=== PATIENT | male | born 1945 | race Caucasian/White ===

== ENCOUNTER 2023-06-22 09:42 | Outpatient (CLI) | payer MEDICARE, SELFPAY ==
[2023-06-22 10:44] LABS: Basophils Absolute Auto 0.1 K/mm3 (0.0-0.1); Eosinophils Absolute Auto 0.4 K/mm3 (0-0.3); Eosinophils Percent Auto 7.5 % (0-4.4); Hemoglobin 14.3 g/dL (14.0-18.0); Immature Granulocyte Absolute 0.03 K/mm3 (0.00-0.031); Immature Granulocyte Percent A 0.5 % (0-0.5); Lymphocytes Absolute Auto 1.35 K/mm3 (0.9-3.2); Lymphocytes Percent Auto 23.5 % (18.3-44.2); Mean Corpuscular HGB Conc 32.5 g/dl (32-36); Mean Corpuscular Hemoglobin 29.7 pg (26-34); Mean Corpuscular Volume 91.3 fl (80-100); Mean Platelet Volume 9.6 fl (7.4-10.4); Monocytes Absolute Auto 0.4 K/mm3 (0.1-0.6); Monocytes Percent Auto 7.1 % (2.6-8.5); Neutrophils Absolute Auto 3.5 K/mm3 (1.3-6.7); Neutrophils Percent Auto 60.4 % (45.5-73.1); Platelet Count Result 225 k/mm3 (150-375); Red Blood Count 4.82 M/mm3 (4.6-6.20); Red Cell Distribution Width 13.9 % (11.5-14.5); White Blood Count 5.8 K/mm3 (4.5-10.0)
[2023-06-22 11:19] LABS: Urine Cotinine NEGATIVE
[2023-06-22 13:06] LABS: Hemoglobin A1C 6.4 % (<5.7)
[2023-06-22 13:46] LABS: Albumin Level 4.4 g/dL (3.5-5.1); Anion Gap 7 mmol/L (4-12); Blood Urea Nitrogen 20 mg/dL (9-20); Carbon Dioxide 25 mmol/L (22-30); Chloride 106 mmol/L (98-107); Estimated Glomerular Filt Rate > 60; Glucose 124 mg/dL (65-110); Potassium 4.8 mmol/L (3.4-5.0); Sodium 138 mmol/L (137-145)
== END 2023-06-22 09:43 | disposition home or self-care (01) ==
PROVIDERS: Visit Provider Orthopaedic Surgery
DX: M17.12 Unilateral primary osteoarthritis, left knee (principal); Z01.818 Encounter for other preprocedural examination
CPT/HCPCS: 80048; 80307; 82040; 83036; 85025; 86850; 86900; 86901; 87081; 87181

== ENCOUNTER 2023-07-05 01:24 | Day surgery (SDC) | payer MEDICARE, SELFPAY ==
--- NOTE | 2023-06-22 09:38 | PC.NURSE ---
PRE-OP INSTRUCTIONS, PLEASE READ CAREFULLY Report to the Outpatient Waiting Room, entrance under the green pavilion located off [facility], at time _0600_ on date _07/05/23_. Planned Procedure Time: _0730_. PACK A SMALL OVERNIGHT BAG AND LEAVE IN THE CAR ALONG WITH YOUR WALKER Time changes happen often and if your time is changed the preop area will call you the afternoon before. - You and your visitor will be asked to self-screen and do not enter if you have any COVID symptoms. - A mask is optional within the hospital at this time. -VISITING HOURS 8AM-8PM Patients may have clear liquids (water, carbonated beverages, clear teas, apple juice) until 3 hours prior to surgery (0430 AM) with a maximum of 20 ounces. - No food from midnight until time of surgery Take the following medications with a SIP of water the morning of surgery: _TYLENOL IF NEEDED_ DO NOT STOP ANY OF YOUR OTHER PRESCRIPTION MEDICATIONS PRIOR TO SURGERY ?EXCEPT THE FOLLOWING Medications to discontinue per DR. BERNSTEIN - _ASPIRIN INSTRUCTED BY DR. BERNSTEIN, NAPROXEN 7 DAYS PRIOR TO SURGERY, Date to take last dose 06/27/23_ Medications to discontinue per ANESTHESIA - _MULTIVITAMIN 3 DAYS PRIOR TO SURGERY, Date to take last dose 07/01/23_ Please no make-up, nail vincentian, hairspray, perfume, deodorant, or body powder the day of surgery. No jewelry (including any body piercings) or valuables the day of surgery, leave them at home. Please take a shower or bath the night before, or the morning of, surgery with an antibacterial soap. Wear comfortable, loose fitting clothing. - Jewelry must be removed prior to entering the operating room. Rings and piercings that are not removed may be cut off. - The hospital will not accept responsibility for valuables. - Please leave all valuables, including medications, at home the day of surgery. If you are going home after surgery, a licensed sales warehouse driver must drive you home. - NO public transportation without another adult if you receive anesthesia. - We recommend that an adult stay with you for 24 hours following discharge. - We also recommend that you do not drive, make important decision, drink alcoholic beverages, or take any drugs that were not prescribed by your health care provider for at least 24 hours after your discharge time. Follow any additional instructions given to you from your surgeon. If you or anyone in your household have experienced Covid symptoms in the past week, please notify your surgeon or the nurse liaison at the phone number below for possible testing. Instructions given to _PATIENT_and asked if any additional questions and then verbalized understanding. Patient advised to call surgeon office or pre surgery nurse liaison [phone] if any additional questions.
[2023-06-22 09:51] VITALS: BP 144/58; PULSE 66; RESP 20; TEMP 36.9; O2SAT 99; BMI 33.5
--- NOTE | 2023-07-04 16:12 | PM.IMHP ---
H&P: HPI History of Present Illness Date/Time: 07/04/23 16:12 Chief Complaint: painful medial compartment osteoarthritis left knee Narrative: patient is a 78-year-old gentleman has had a 1 year history of progressively worsening medial compartment osteoarthritis in his left knee. He originally presented with a degenerative tear of the medial meniscus and extensive subchondral bone marrow edema with moderate medial compartment joint space narrowing. He has had cortisone injections he has taken naproxen 500 mg twice daily and had physical therapy and has not had any relief and his osteoarthritis radiographically has continued to progress and is now moderately severe medial compartment joint space narrowing. He now presents for total knee arthroplasty. His primary care physician is Dr. Mullins. He was evaluated by Dr. Anderson the client service coordinator in [place] and has been cleared to proceed without significant elevation of cardiac risk. He has taken a baby aspirin daily for many years because of his so obesity and diabetes and we will continue with this. His hemoglobin A1c runs approximately 7. PMFSH Past Medical History Medical History (Updated 07/04/23 @ 16:17 by Yordy Dominique MD) High cholesterol Hypertension Osteoarthritis of right knee Type 2 diabetes mellitus Surgical History Surgical History (Updated 06/18/23 @ 14:30 by Maria Dolores Méndez CMA) History of appendectomy History of rotator cuff surgery right Social History Social History (Updated 06/18/23 @ 14:31 by Maria Dolores Méndez CMA) Smoking status: Never smoker Second hand tobacco smoke exposure: No Additional smoking assessment comments: PT DENIES ALL FORMS OF TOBACCO USE Alcohol intake: current Alcohol use details: 1-2/MONTH Substance use: never Substance use type: does not use Do You Feel Safe in your Home?: Yes Lack of Transportation: No Lack of Food: Never True Current Housing: I Have Housing Concerned About Future Housing: No Difficulty Paying Gas/Electric Bills: No Difficulty Paying for Meds: No Currently Unemployed: No Education: High School Diploma/GED Difficulty w/ Childcare or Family Care: No Living arrangements: with family Occupation/Education: retired Spiritual care concerns: No Meds Home Medications and Allergies Home Medications Medication Instructions Recorded Confirmed Type acetaminophen 500 mg tablet 500 mg PO Q6H PRN Pain 06/18/23 06/22/23 History (Tylenol Extra Strength) aspirin 81 mg tablet,delayed 81 mg PO DAILY 06/18/23 06/22/23 History release (Koki Low Dose Aspirin) atorvastatin 20 mg tablet 20 mg PO DAILY 06/18/23 06/22/23 History fexofenadine 180 mg tablet 180 mg PO DAILY 06/18/23 06/22/23 History (Allergy Relief (fexofenadine)) lisinopril 10 mg tablet 10 mg PO DAILY 06/18/23 06/22/23 History metformin 500 mg tablet 500 mg PO BID 06/18/23 06/22/23 History multivitamin 1 tablet PO DAILY 06/18/23 06/22/23 History naproxen sodium 220 mg capsule 220 mg PO BID PRN Pain 06/18/23 06/22/23 History pioglitazone 15 mg tablet 15 mg PO DAILY 06/18/23 06/22/23 History Allergies Allergy/AdvReac Type Severity Reaction Status Date / Time No Known Allergies Allergy Verified 06/22/23 09:58 Exam Extrem: Other: On examination today the patient is a pleasant gentleman in no acute distress. Alert and oriented. 5 ft 8 in in height 226 lb BMI of 33.8. Range of motion left knee 5-125 degrees mild effusion. He has medial pain with full flexion. Moderate medial joint line tenderness moderate pain with patellofemoral grind normal stability. Hip range of motion was full without discomfort negative Stinchfield maneuver. He has trace pretibial edema bilaterally no pedal edema. 2+ dorsalis pedis and posterior tibial artery pulses were palpable. Skin looks normal he had normal size lower extremity sensation and 5/5 quadriceps strength. H&P: Results Imaging Left knee x-rays: My impression: x-rays of left knee show narrowing of medial compartment joint space to 1.7 mm. Assessment and Plan Assessment and plan (1) Osteoarthritis of left knee: Qualifiers: Osteoarthritis type: primary Qualified Code(s): M17.12 - Unilateral primary osteoarthritis, left knee Code(s): M17.12 - Unilateral primary osteoarthritis, left knee Status: Acute Assessment and Plan: Patient has progressively worsening medial compartment osteoarthritis in left knee has had no relief with non operative treatment over the past year and his symptoms are steadily worsening and he would like to proceed with total knee replacement. Risks of surgery were reviewed with him in detail. He understands and wishes to proceed. He will stop his naproxen 7 days before surgery but continue the baby aspirin.
[2023-07-05] VITALS (14 sets, daily range): BP systolic 120–169; BP diastolic 52–83; PULSE 68–100; RESP 12–18; TEMP 36–37.1; O2SAT 92–99
--- NOTE | ~2023-07-05 | XR_ITS ---
Left Knee Technique: Portable AP and crosstable lateral views Clinical History: Status post TKR Findings: Patient is status post total knee replacement. Orthopedic hardware alignment appears anatom ic. No hardware complication is evident. Subcutaneous emphysema and swelling is likely postoperative in nature. No acute osseous fracture is seen. Impression: Status post total knee replacement, without evidence of hardware complication. Reviewed, dictated and finalized at location . Impression: Status post total knee replacement, without evidence of hardware complication.
[2023-07-05] MEDS: ACETAMINOPHEN 500 MG TABLET 1000 MG PO ×2 (06:30→17:42)
[2023-07-05] MEDS: TRANEXAMIC ACID 1,000MG/ISO100 1,000 MG/100 ML BAG 200 MG IVPB (06:35)
[2023-07-05] MEDS: LACTATED RINGERS 1,000 ML 30 ML IV CONT ×2 (06:35→11:04)
[2023-07-05] MEDS: VANCOMYCIN 1,500 MG/NS 500 ML BAG 250 MG IVPB (06:35)
[2023-07-05 06:52] LABS: Glucose Point of Care 131 mg/dl (65-105)
--- NOTE | 2023-07-05 07:02 | P.PNAN_ITS ---
Anes - Initial Pre Proc Eval Procedure: Operation Date: 07/05/23 07:30 Proposed Procedures p Left Total Knee Arthroplasty - Yordy Dominique MD Date/Time: 07/05/23 07:02 Surgeon: Yordy Dominique MD Pre Op Diagnosis: oa Left knee Patient Data Age: 78 Gender: M Height: 1.75 m Weight: 102.9 kg Last Vital Signs Temp 98.5 F 06/22/23 09:51 Pulse 66 06/22/23 09:51 Resp 20 06/22/23 09:51 BP 144/58 H 06/22/23 09:51 Pulse Ox 99 06/22/23 09:51 O2 Del Method Room Air 06/22/23 09:51 Allergies Allergy/AdvReac Type Severity Reaction Status Date / Time No Known Allergies Allergy Verified 07/05/23 06:42 Home Medications Medication Instructions Recorded Confirmed Type acetaminophen 500 mg tablet 500 mg PO Q6H PRN Pain 06/18/23 07/05/23 History (Tylenol Extra Strength) aspirin 81 mg tablet,delayed 81 mg PO DAILY 06/18/23 07/05/23 History release (Koki Low Dose Aspirin) atorvastatin 20 mg tablet 20 mg PO DAILY 06/18/23 07/05/23 History fexofenadine 180 mg tablet 180 mg PO DAILY 06/18/23 07/05/23 History (Allergy Relief (fexofenadine)) lisinopril 10 mg tablet 10 mg PO DAILY 06/18/23 07/05/23 History metformin 500 mg tablet 500 mg PO BID 06/18/23 07/05/23 History multivitamin 1 tablet PO DAILY 06/18/23 07/05/23 History naproxen sodium 220 mg capsule 220 mg PO BID PRN Pain 06/18/23 07/05/23 History pioglitazone 15 mg tablet 15 mg PO DAILY 06/18/23 07/05/23 History Laboratory Tests 07/05/23 06:50 POC Capillary Glucose 131 H mg/dl (65-105) Patient hx anesthesia problems: none Family hx anesthesia problems: none Results Review: All pre-operative results and documents have been reviewed as part of the pre-operative evaluation. [facility] Past Medical History Medical History (Updated 07/04/23 @ 16:17 by Yordy Dominique MD) High cholesterol Hypertension Osteoarthritis of right knee Type 2 diabetes mellitus Surgical History Surgical History (Updated 06/18/23 @ 14:30 by Maria Dolores Méndez CMA) History of appendectomy History of rotator cuff surgery right Social History Social History (Updated 06/18/23 @ 14:31 by Maria Dolores Méndez CMA) Smoking status: Never smoker Second hand tobacco smoke exposure: No Additional smoking assessment comments: PT DENIES ALL FORMS OF TOBACCO USE Alcohol intake: current Alcohol use details: 1-2/MONTH Substance use: never Substance use type: does not use Do You Feel Safe in your Home?: Yes Lack of Transportation: No Lack of Food: Never True Current Housing: I Have Housing Concerned About Future Housing: No Difficulty Paying Gas/Electric Bills: No Difficulty Paying for Meds: No Currently Unemployed: No Education: High School Diploma/GED Difficulty w/ Childcare or Family Care: No Living arrangements: with family Occupation/Education: retired Spiritual care concerns: No Anes - Eval Final PreProcedure Day of Procedure 07/05/23 07:02 Patient weight: normal Heart: regular rate and rhythm Lungs: clear to auscultation Airway: Mallampati scale class III Neurological: alert and oriented Last oral intake: >/= 8 hours ASA classification: III Emergent: no Anesthetic plan: proceed Anesthesia type and monitoring: general ETT (have glidescope in the room) and standard monitoring Results Review: All pre-operative results and documents have been reviewed as part of the pre- operative evaluation. Informed Consent: The patient's anesthetic plan and its attendant risks and benefits were discussed with the patient/family/POA. Questions were solicited and answers provided to the satisfaction of the patient/family/POA.
--- NOTE | 2023-07-05 07:09 | P.OP_ITS ---
Procedure Note - Detailed Date of Procedure 07/05/23 Pre-op Diagnosis oa Left knee Post-op Diagnosis Same Procedure Performed Left total knee arthroplasty Surgeon Yordy Dominique MD Smoke Jumper Supervisor Chantale Vargas Anesthesia General Description of Procedure Patient was brought to the operating room and general anesthesia was administered. He received 2 g of Ancef weight based vancomycin 1 g of tranexamic acid preoperatively. Left knee was prepped draped usual fashion. He had full extension under anesthesia. Limb was exsanguinated tourniquet elevated to 300 mmHg. A 7 in longitudinal incision was made and a standard parapatellar arthrotomy utilized. Infrapatellar fat pad was partially excised. Quadriceps synovectomy carried out. The patella had essentially normal articular cartilage. I felt it was most suitable for non resurfacing. A guide elighton was inserted on femoral canal after aspiration of canal contents using the 5 degree valgus cutting bushing 9 mm of bone removed the distal femur. Next the tibial plateau was cut removing about 4 mm of bone from the low point of the medial tibial plateau which removed about 6 laterally. Meniscal remnants were excised and the PCL recessed. Flexion gap was a a tight 8 medially and a tight and laterally at 90? indicating the need for removal little more tibial plateau and we confirmed we had proper alignment of the cut and we removed an additional 2 mm of bone from the tibial plateau. At this point flexion gap at 90? 9 medially 11 lateral bone quality was excellent. The femoral sizing guide was applied set at 3? of external rotation which matched Whitesides line exactly. Posterior referencing pinholes were placed. We applied the size 70 cutting block in the anterior cut was proud and we went to the 67.5 cutting block which gave appropriate anterior cut essentially flush with the anterior cortex posterior and chamfer cuts were made and the 67 0.5 vanguard trial fit line to line with ample we had ample play with the 10 CR insert a 90? of flexion with 2 mm of opening both medially and laterally. The tibia was sized to a size 75 which fit line to line anteromedial to posterolateral. This was punched and we trialed. With the 10 insert and about 2 mm of opening medially and laterally came out to full extension but no play mediolaterally. The 11 insert at 90? had a mm opening mediolateral and had a few mm of anterior posterior drawer and with the arthrotomy towel clipped still a few mm of anterior drawer and I thought felt the 11 was most appropriate in flexion. We lacked couple degrees of extension though. Additional mm and half of bone was removed the distal femur and chamfer cuts revisited and on repeat trialing with the 11 the knee came out to full extension negative bounce with a mm of play to varus and valgus stress full extension and gravity flexion 135. The was excellent patellar tracking even with the tourniquet up. Lug holes were drilled for the femur and step drill was used to make multiple holes in the tibial plateau and distal femur as his bone was very hard throughout. Bony surfaces were thoroughly irrigated and dried. He is 2 batches of methylmethacrylate 1 the gentamicin powder cement was medial applied to 75 vanguard tibial tray and the 67.5 CR left femoral component. Cement applied the tibial plateau pressurized tibial component fully seated cement applied the femur the femoral component fully seated the brought into extension with a 12 mm 5 1 insert for cement pressurization the tourniquet was released at 102 minutes. After cement hardening excess cement was sought for removed and hemostasis was achieved. EBL was estimated at 1:50 a.m.. We trialed and the 11 insert was appropriate. The real 11 insert was placed locked with a locking clip range of motion stability patellar tracking reconfirmed. Periarticular soft tissues were injected with local anesthetic cocktail. The arthrotomy was closed with 2. Vicryl is a 1. Unidirectional barbed Stratafix sutures. Skin was closed with 2-0 subcutaneous Vicryl 3-0 subcuticular Monocryl glue. Two additional g of Ancef and 1 g of TXA were given at time of wound closure. There were no complications he was transferred postop recovery room in stable condition. [facility] Billing Surgery - Charge Forward: Surgery Billing
--- NOTE | 2023-07-05 07:09 | WPDHPUPDATE1 ---
History and Physical Update Update Date/Time: 07/05/23 07:09 History and Physical has been reviewed, including an updated exam of the patient. There are NO changes in the patient's condition. Risks, benefits, and alternatives have been discussed and questions answered. Patient agrees to proceed with procedure.
[2023-07-05] MEDS: ceFAZolin 2 GM/D5W 50 ML 2 GM/50 ML BAG IVPB (07:26)
[2023-07-05] MEDS: ceFAZolin SODIUM 1 GM VIAL 3 GM (08:28)
[2023-07-05] MEDS: SODIUM CHLORIDE 0.9% IV 37.7 ML, MORPHINE SULFATE INJ (*CRX) 2 MG, ROPivacaine HCL 1% 2... INFILTRATE (08:29)
[2023-07-05] MEDS: ceFAZolin SODIUM 1 GM VIAL 2 GM IV PUSH (09:45)
[2023-07-05] MEDS: KETOROLAC 15 MG/ML VIAL (*BKC) IV PUSH (09:47)
[2023-07-05] MEDS: TRANEXAMIC ACID 1,000 MG/10 ML AMPUL 1000 MG IV PUSH (09:47)
[2023-07-05 11:23] LABS: Glucose Point of Care 197 mg/dl (65-105)
[2023-07-05] MEDS: ONDANSETRON INJ 4 MG/2 ML VIAL IV PUSH ×2 (12:06→14:45)
[2023-07-05] MEDS: SODIUM CHLORIDE 0.9% IV 1,000 ML 125 ML IV CONT (14:45)
[2023-07-05] MEDS: ceFAZolin 1 GM/NS 50 ML 1 GM/50 ML BAG IVPB ×2 (14:45→22:00)
--- NOTE | 2023-07-05 15:22 | P.CONS_ITS ---
Assessment and Plan Assessment and plan (1) Osteoarthritis of left knee: Qualifiers: Osteoarthritis type: primary Qualified Code(s): M17.12 - Unilateral primary osteoarthritis, left knee Code(s): M17.12 - Unilateral primary osteoarthritis, left knee Status: Acute Assessment and Plan: Postoperative day 0 status post right total knee arthroplasty. Wound care, pain control, and DVT prophylaxis deferred to Dr. Dominique. Check baseline labs in a.m. (2) Hypertension: Code(s): I10 - Essential (primary) hypertension Status: Acute Assessment and Plan: Blood pressures were reviewed and have been persistently in the 150s to 160s systolic since surgery. These are likely elevated due to pain and should improve with better pain control. Continue lisinopril 10 mg daily and continue to monitor closely. (3) Type 2 diabetes mellitus: Code(s): E11.9 - Type 2 diabetes mellitus without complications Status: Acute Assessment and Plan: Resume oral diabetic medications in the morning. Initiate sliding scale insulin, Accu-Cheks, and hypoglycemic protocol. (4) Dyslipidemia: Code(s): E78.5 - Hyperlipidemia, unspecified Status: Acute Assessment and Plan: Resume fexofenadine and atorvastatin. Check LFTs in a.m. Plan Thank you for allowing us to participate in this patient's care. Please do not hesitate to contact us with any questions. [facility] Data of Consult Date/Time: 07/05/23 15:00 Requesting Physician: Yordy Dominique MD Consult Narrative Reason for consult: Medical management. Narrative: This is a 78-year-old male with osteoarthritis, hypertension, dyslipidemia, and type 2 diabetes mellitus whom the hospitalist service has been consulted for help managing his medical conditions postoperatively. He presented today for elective total knee arthroplasty due to ongoing pain despite conservative outpatient treatment. Surgery was performed under general anesthesia with no immediate complications documented. He had a bit of nausea and 1 episode of emesis not long after surgery but that has since resolved and he ate dinner without issue. He has minimal if any pain and has not required narcotics. He has been up with PT and is ambulating the halls. He denies fever, chills, sweats, chest pain, and shortness of breath. He also denies paresthesias, skin color, and temperature changes distal to the surgical site. On discharge he will be going home to his who is a retired nurse. Review of Systems Review of Systems: Twelve systems were reviewed. He believes is hypertension hyperlipidemia are well controlled on home medication. Diabetes is well controlled with a recent hemoglobin A1c of 6.4%. No history of venous thromboembolism. Except as documented, all other systems were reviewed and are negative. [facility] Past Medical History Medical History (Updated 07/05/23 @ 15:26 by Lyly rOopeza PA-C) Dyslipidemia Hypertension Osteoarthritis Type 2 diabetes mellitus Surgical History Surgical History (Updated 07/05/23 @ 15:25 by Lyly Oropeza PA-C) History of appendectomy History of repair of right rotator cuff Family History Family History (Updated 07/05/23 @ 15:25 by Lyly Oropeza PA-C) Other Family history non-contributory Social History Social History (Updated 07/05/23 @ 15:25 by Lyly Oropeza PA-C) Social History: Surrogate medical decision maker: Swetha Cole, spouse. Code status: Full code. Smoking status: Never smoker Second hand tobacco smoke exposure: No Alcohol intake: current Alcohol use details: 1 to 2 alcoholic beverages a month. Substance use: never Substance use type: does not use Do You Feel Safe in your Home?: Yes Lack of Transportation: No Lack of Food: Never True Current Housing: I Have Housing Concerned About Future Housing: No Difficulty Paying Gas/Electric Bills: No Difficulty Paying for Meds: No Currently Unemployed: No Education: High School Diploma/GED Difficulty w/ Childcare or Family Care: No Living arrangements: with family Occupation/Education: retired Spiritual care concerns: No Meds Home Medications and Allergies Home Medications Medication Instructions Recorded Confirmed Type acetaminophen 500 mg tablet 500 mg PO Q6H PRN Pain 06/18/23 07/05/23 History (Tylenol Extra Strength) aspirin 81 mg tablet,delayed 81 mg PO DAILY 06/18/23 07/05/23 History release (Koki Low Dose Aspirin) atorvastatin 20 mg tablet 20 mg PO DAILY 06/18/23 07/05/23 History fexofenadine 180 mg tablet 180 mg PO DAILY 06/18/23 07/05/23 History (Allergy Relief (fexofenadine)) lisinopril 10 mg tablet 10 mg PO DAILY 06/18/23 07/05/23 History metformin 500 mg tablet 500 mg PO BID 06/18/23 07/05/23 History multivitamin 1 tablet PO DAILY 06/18/23 07/05/23 History naproxen sodium 220 mg capsule 220 mg PO BID PRN Pain 06/18/23 07/05/23 History pioglitazone 15 mg tablet 15 mg PO DAILY 06/18/23 07/05/23 History Allergies Allergy/AdvReac Type Severity Reaction Status Date / Time No Known Allergies Allergy Verified 07/05/23 06:42 Vital Signs Vital Signs - 24 hr 07/05/23 06:23 07/05/23 11:04 07/05/23 11:15 Temperature 97.5 F L 97.5 F L Pulse Rate 68 91 93 Respiratory Rate 18 15 12 Blood Pressure 152/70 H 165/74 H 167/81 H Pulse Oximetry 99 94 94 Oxygen Delivery Room Air Simple Face Mask Simple Face Mask Oxygen Flow Rate 8 8 07/05/23 11:20 07/05/23 11:30 07/05/23 11:45 Temperature Pulse Rate 97 92 Respiratory Rate 12 12 Blood Pressure 165/80 H 162/74 H Pulse Oximetry 93 95 95 Oxygen Delivery Room Air Room Air Room Air Oxygen Flow Rate 07/05/23 12:15 07/05/23 12:00 07/05/23 12:50 Temperature 96.8 F L Pulse Rate 95 91 100 Respiratory Rate 16 16 18 Blood Pressure 152/80 H 168/77 H 169/83 H Pulse Oximetry 96 95 93 Oxygen Delivery Room Air Room Air Oxygen Flow Rate 07/05/23 13:05 07/05/23 13:44 07/05/23 13:35 Temperature 96.8 F L 97.1 F L Pulse Rate 95 92 Respiratory Rate 16 18 Blood Pressure 158/73 H 150/69 H Pulse Oximetry 92 93 Oxygen Delivery Room Air Oxygen Flow Rate 07/05/23 14:35 Temperature 97.1 F L Pulse Rate 97 Respiratory Rate 18 Blood Pressure 145/72 H Pulse Oximetry 95 Oxygen Delivery Oxygen Flow Rate Exam Narrative: General: Well-developed, nontoxic-appearing gentleman sitting up in bed in no acute distress. Weight: 101.7 kg. BMI: 33.1. HEENT: PERRL, EOMI. Sclera anicteric. Oral mucosa moist. Neck: Supple. Respiratory: Lungs are clear to auscultation bilaterally. Cardiovascular: Regular rate and rhythm with S1-S2. Gastrointestinal: Abdomen is soft, nontender, and nondistended with positive bowel sounds. Skin: Warm and dry. No rash or lesions on limited exam. Extremities: No cyanosis, clubbing, or edema. Radial and pedal pulses intact. Musculoskeletal: Left knee dressing is clean, dry, and intact. He is neurovascularly intact distal to the surgical site. Neurological: Alert. Cranial nerves 2-12 grossly intact. No gross focal deficits to casual conversation. Psychiatric: Pleasant and cooperative with normal mood and affect. Judgment and insight intact.
[2023-07-05 16:33] LABS: Glucose Point of Care 198 mg/dl (65-105)
[2023-07-05] MEDS: KETOROLAC 15 MG/ML VIAL (*BKC) 7.5 MG IV PUSH (17:35)
[2023-07-05] MEDS: metFORMIN HCL 500 MG TABLET PO (17:36)
[2023-07-05] MEDS: VANCOMYCIN 1,000 MG/NS 250 ML 1,000 MG/250 ML BAG 250 MG IVPB (17:36)
[2023-07-05] MEDS: SENNA/DOCUSATE SODIUM TABLET 2 TAB PO (17:36)
[2023-07-05 20:31] LABS: Glucose Point of Care 205 mg/dl (65-105)
[2023-07-05] MEDS: INSULIN ASPART (*BKC) 100 UNITS/ML SUB-Q (21:17)
[2023-07-06 02:20] VITALS: BP 130/50; PULSE 76; RESP 14; TEMP 37.3; O2SAT 95
[2023-07-06] MEDS: oxyCODONE HCL (*CRX) 5 MG TAB IR PO ×3 (03:30→10:55)
[2023-07-06 05:44] VITALS: BP 140/59; PULSE 85; RESP 14; TEMP 36.7; O2SAT 92
[2023-07-06] MEDS: VANCOMYCIN 1,000 MG/NS 250 ML 1,000 MG/250 ML BAG 250 MG IVPB (05:53)
[2023-07-06] MEDS: ceFAZolin 1 GM/NS 50 ML 1 GM/50 ML BAG IVPB (05:54)
[2023-07-06] MEDS: ACETAMINOPHEN 500 MG TABLET 1000 MG PO (05:54)
[2023-07-06 06:29] LABS: Basophils Percent Auto 0.4 % (0.2-1.2); Eosinophils Percent Auto 0.2 % (0-4.4); Hematocrit 36.1 % (42.0-52.0); Hemoglobin 11.8 g/dL (14.0-18.0); Immature Granulocyte Absolute 0.03 K/mm3 (0.00-0.031); Immature Granulocyte Percent A 0.3 % (0-0.5); Lymphocytes Absolute Auto 1.12 K/mm3 (0.9-3.2); Lymphocytes Percent Auto 11.6 % (18.3-44.2); Mean Corpuscular HGB Conc 32.7 g/dl (32-36); Mean Corpuscular Hemoglobin 29.7 pg (26-34); Mean Corpuscular Volume 90.9 fl (80-100); Mean Platelet Volume 10.3 fl (7.4-10.4); Monocytes Absolute Auto 1.2 K/mm3 (0.1-0.6); Monocytes Percent Auto 11.9 % (2.6-8.5); Neutrophils Absolute Auto 7.3 K/mm3 (1.3-6.7); Neutrophils Percent Auto 75.6 % (45.5-73.1); Platelet Count Result 202 k/mm3 (150-375); Red Blood Count 3.97 M/mm3 (4.6-6.20); Red Cell Distribution Width 13.7 % (11.5-14.5); White Blood Count 9.7 K/mm3 (4.5-10.0)
[2023-07-06 06:50] LABS: Alanine Aminotransferase 15 U/L (6-50); Albumin Level 3.5 g/dL (3.5-5.1); Alkaline Phosphatase 46 U/L (38-126); Anion Gap 3 mmol/L (4-12); Aspartate Amino Transferase 20 U/L (17-59); Bilirubin,Total 0.5 mg/dL (0.2-1.3); Blood Urea Nitrogen 18 mg/dL (9-20); Calcium 8.5 mg/dL (8.4-10.2); Carbon Dioxide 25 mmol/L (22-30); Chloride 108 mmol/L (98-107); Estimated CRCL calculation 94 ml/min; Estimated Glomerular Filt Rate > 60; Glucose 147 mg/dL (65-110); Magnesium 1.9 mg/dL (1.6-2.3); Sodium 136 mmol/L (137-145)
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
[2023-07-06 07:48] LABS: Glucose Point of Care 152 mg/dl (65-105)
[2023-07-06 08:00] VITALS: BP 133/60; PULSE 75; RESP 18; TEMP 35.7; O2SAT 94
--- NOTE | 2023-07-06 08:08 | WPDANESPN ---
Anes - Prog Note Post-Op Date/Time: 07/06/23 08:08 Cardiovascular status: normal Respiratory status: normal Airway patency: baseline Mental status: baseline Post-Op hydration status: normal Vital Signs: Last Vital Signs Temp 36.7 C 07/06/23 05:44 Pulse 85 07/06/23 05:44 Resp 14 07/06/23 05:44 BP 140/59 L 07/06/23 05:44 Pulse Ox 92 07/06/23 05:44 O2 Del Method Room Air 07/05/23 20:00 O2 Flow Rate 8 07/05/23 11:15 Pain Score (VAS): 04/28 I/O: Intake & Output 07/05/23 07/06/23 07/06/23 23:59 07:59 15:59 Intake Total 300 1000 Output Total 350 1400 Balance -50 -400 Laboratory Tests 07/06/23 05:54 07/06/23 05:54 07/05/23 07/05/23 07/05/23 11:13 16:26 20:24 WBC RBC Hgb Hct MCV MCH MCHC RDW Plt Count MPV Immature Gran % (Auto) Neut % (Auto) Lymph % (Auto) [place] % (Auto) Eos % (Auto) Baso % (Auto) Lymph # (Auto) [place] # (Auto) Eos # (Auto) Baso # (Auto) Abs Immat Gran (auto) Absolute Neuts (auto) Absolute Nucleated RBC Nucleated RBC % Sodium Potassium Chloride Carbon Dioxide Anion Gap BUN Creatinine Estim Creat Clear Calc Estimated GFR Glucose POC Capillary Glucose 197 H 198 H 205 H Calcium Magnesium Total Bilirubin Direct Bilirubin AST ALT Alkaline Phosphatase Total Protein Albumin 07/06/23 07/06/23 05:54 07:37 WBC 9.7 RBC 3.97 L Hgb 11.8 L Hct 36.1 L MCV 90.9 MCH 29.7 MCHC 32.7 RDW 13.7 Plt Count 202 MPV 10.3 Immature Gran % (Auto) 0.3 Neut % (Auto) 75.6 H Lymph % (Auto) 11.6 L [place] % (Auto) 11.9 H Eos % (Auto) 0.2 Baso % (Auto) 0.4 Lymph # (Auto) 1.12 [place] # (Auto) 1.2 H Eos # (Auto) 0.0 Baso # (Auto) 0.0 Abs Immat Gran (auto) 0.03 Absolute Neuts (auto) 7.3 H Absolute Nucleated RBC 0.000 Nucleated RBC % 0.0 Sodium 136 L Potassium 4.0 Chloride 108 H Carbon Dioxide 25 Anion Gap 3 L BUN 18 Creatinine 0.70 Estim Creat Clear Calc 94 Estimated GFR > 60 Glucose 147 H POC Capillary Glucose 152 H Calcium 8.5 Magnesium 1.9 Total Bilirubin 0.5 Direct Bilirubin 0.0 AST 20 ALT 15 Alkaline Phosphatase 46 Total Protein 6.0 L Albumin 3.5 Post-procedural complaints: none Patient Feedback: Patient satisfied with anesthetic care.
[2023-07-06] MEDS: ATORVASTATIN 20 MG TABLET PO (09:59)
[2023-07-06] MEDS: PIOGLITAZONE HCL 15 MG TAB PO (09:59)
[2023-07-06] MEDS: CELECOXIB 100 MG CAPSULE PO (09:59)
[2023-07-06] MEDS: SENNA/DOCUSATE SODIUM TABLET 2 TAB PO (09:59)
[2023-07-06] MEDS: MULTIVITAMINS THERAPEUTIC TAB (*BKC) 1 TABLET PO (09:59)
[2023-07-06] MEDS: ASPIRIN 81 MG ENTERIC TABLET PO (10:00)
[2023-07-06] MEDS: APIXABAN 2.5 MG TABLET PO (10:00)
[2023-07-06] MEDS: metFORMIN HCL 500 MG TABLET PO (10:00)
[2023-07-06] MEDS: polyethylene glycoL 3350 17 GM POWD.PACK PO (10:00)
[2023-07-06 11:23] LABS: Glucose Point of Care 181 mg/dl (65-105)
--- NOTE | 2023-07-06 12:04 | P.PNIM_ITS ---
Progress Note: A&P Assessment and Plan (1) Osteoarthritis of left knee: Qualifiers: Osteoarthritis type: primary Qualified Code(s): M17.12 - Unilateral primary osteoarthritis, left knee Code(s): M17.12 - Unilateral primary osteoarthritis, left knee Status: Acute Assessment and Plan: Postoperative day 1 status post right total knee arthroplasty. Wound care, pain control, and DVT prophylaxis deferred to Dr. Dominique. Labs reviewed (2) Hypertension: Code(s): I10 - Essential (primary) hypertension Status: Acute Assessment and Plan: Blood pressures were reviewed and have been persistently in the 150s to 160s systolic since surgery. These are likely elevated due to pain and should improve with better pain control. Continue lisinopril 10 mg daily and continue to monitor closely. Follow-up with PCP (3) Type 2 diabetes mellitus: Code(s): E11.9 - Type 2 diabetes mellitus without complications Status: Acute Assessment and Plan: Resume oral diabetic medications in the morning. Initiate sliding scale insulin, Accu-Cheks, and hypoglycemic protocol. (4) Dyslipidemia: Code(s): E78.5 - Hyperlipidemia, unspecified Status: Acute Assessment and Plan: Resume fexofenadine and atorvastatin. Subjective Date/time seen: 07/06/23 12:04 Interval history: No overnight events. Pains controlled. Anticipated discharge today. Review of Systems Review of Systems: All systems reviewed & are unremarkable except as noted in HPI and below Exam Narrative: General: Well-developed, nontoxic-appearing gentleman sitting up in bed in no acute distress. HEENT: PERRL, EOMI. Sclera anicteric. Oral mucosa moist. Neck: Supple. Respiratory: Lungs are clear to auscultation bilaterally. Cardiovascular: Regular rate and rhythm with S1-S2. Gastrointestinal: Abdomen is soft, nontender, and nondistended with positive b owel sounds. Skin: Warm and dry. No rash or lesions on limited exam. Extremities: No cyanosis, clubbing, or edema. Radial and pedal pulses intact. Musculoskeletal: Left knee dressing is clean, dry, and intact. He is neurovascularly intact distal to the surgical site. Neurological: Alert. Cranial nerves 2-12 grossly intact. No gross focal deficits to casual conversation. Psychiatric: Pleasant and cooperative with normal mood and affect. Judgment and insight intact. Objective Data Vital Signs Vital Signs: Vital Signs - 24 hr 07/05/23 12:15 07/05/23 12:50 07/05/23 13:05 Temperature 96.8 F L 96.8 F L Pulse Rate 95 100 95 Respiratory Rate 16 18 16 Blood Pressure 152/80 H 169/83 H 158/73 H Pulse Oximetry 96 93 92 Oxygen Delivery Room Air 07/05/23 13:44 07/05/23 13:35 07/05/23 14:35 Temperature 97.1 F L 97.1 F L Pulse Rate 92 97 Respiratory Rate 18 18 Blood Pressure 150/69 H 145/72 H Pulse Oximetry 93 95 Oxygen Delivery Room Air 07/05/23 20:00 07/05/23 21:33 07/06/23 02:20 Temperature 98.7 F 99.1 F Pulse Rate 96 76 Respiratory Rate 14 14 Blood Pressure 120/52 L 130/50 L Pulse Oximetry 93 93 95 Oxygen Delivery Room Air 07/06/23 05:44 07/06/23 08:00 Temperature 98.0 F 96.3 F L Pulse Rate 85 75 Respiratory Rate 14 18 Blood Pressure 140/59 L 133/60 Pulse Oximetry 92 94 Oxygen Delivery Intake/Output Intake/Output: Intake & Output 07/03/23 07/04/23 07/05/23 07/06/23 23:59 23:59 23:59 23:59 Intake Total 400 1480 Output Total 350 1600 Balance 50 -120 Meds/Results Medications: Active Medications Generic Name Dose Route Start Last Admin Trade Name Joseq PRN Reason Stop Dose Admin Acetaminophen 1,000 mg 07/05/23 13:00 07/06/23 05:54 Acetaminophen 500 Mg Tablet PO 1,000 mg Q6H MYRANDA Administration Apixaban 2.5 mg 07/06/23 09:00 07/06/23 10:00 Apixaban 2.5 Mg Tablet PO 2.5 mg Q12HR MYRANDA Administration Aspirin 81 mg 07/06/23 09:00 07/06/23 10:00 Aspirin 81 Mg Enteric Tablet PO 81 mg DAILY MYRANDA Administration Atorvastatin Calcium 20 mg 07/06/23 09:00 07/06/23 09:59 Atorvastatin 20 Mg Tablet PO 20 mg DAILY MYRANDA Administration Celecoxib 100 mg 07/06/23 08:00 07/06/23 09:59 Celecoxib 100 Mg Capsule PO 100 mg DAILY@0800 MYRANDA Administration Cephalexin HCl 500 mg 07/06/23 12:00 Cephalexin 500 Mg Capsule PO Q6HR MYRANDA Dextrose 12.5 gm 07/05/23 12:35 Dextrose 50% 25 Gm/50 Ml Syringe IV PUSH PRN PRN Hypoglycemia Protocol Glucagon 1 mg 07/05/23 12:35 Glucagon For Inj 1 Mg Vial IM PRN PRN Hypoglycemia Protocol Glucose 15 gm 07/05/23 12:35 Glucose Oral Gel 15 Gm Of Glucse In 37.5 Gm Tube PO PRN PRN Hypoglycemia Protocol Dextrose 1,000 mls @ 100 mls/hr 07/05/23 12:35 Dextrose 5% 1,000 Ml IVPB PRN PRN Hypoglycemia Protocol Insulin Aspart 1 - 2 units 07/05/23 21:00 07/05/23 21:17 Insulin Aspart (*Bkc) 100 Units/Ml SUB-Q 1 units HS MYRANDA Administration Protocol Insulin Aspart 2 - 5 units 07/05/23 18:00 07/06/23 07:50 Insulin Aspart (*Bkc) 100 Units/Ml SUB-Q Not Given Q6HR [facility] Protocol Loratadine 10 mg 07/06/23 09:00 07/06/23 10:00 Loratadine 10 Mg Tablet PO Not Given QAM MYRANDA Metformin HCl 500 mg 07/05/23 17:00 07/06/23 10:00 Metformin Hcl 500 Mg Tablet PO 500 mg BID MYRANDA Administration Morphine Sulfate 2 mg 07/05/23 12:35 Morphine Sulfate (*Crx) 2 Mg/Ml Inj IV PUSH Q1H PRN Pain Rated 7-10 Multivitamins Therapeutic 1 tablet 07/06/23 09:00 07/06/23 09:59 Multivitamins Therapeutic Tab (*Bkc) PO 1 tablet DAILY MYRANDA Administration Naloxone HCl 0.1 mg 07/05/23 12:35 Naloxone Hcl 0.4 Mg/Ml Vial IV PUSH Q2M PRN Opiate Reversal Ondansetron HCl 4 mg 07/05/23 12:35 07/05/23 14:45 Ondansetron Inj 4 Mg/2 Ml Vial IV PUSH 4 mg Q4H PRN Administration Nausea And Vomiting Oxycodone HCl 5 mg 07/05/23 13:00 07/06/23 10:00 Oxycodone Hcl (*Crx) 5 Mg Tab Ir PO 5 mg Q4H MYRANDA Administration Oxycodone HCl 5 mg 07/05/23 12:35 07/06/23 10:55 Oxycodone Hcl (*Crx) 5 Mg Tab Ir PO 5 mg Q4H PRN Administration Pain Rated 4-10 Pioglitazone HCl 15 mg 07/06/23 09:00 07/06/23 09:59 Pioglitazone Hcl 15 Mg Tab PO 15 mg DAILY MYRANDA Administration Polyethylene Glycol 17 gm 07/06/23 09:00 07/06/23 10:00 Polyethylene Glycol 3350 17 Gm Powd.Pack PO 17 gm QAM MYRANDA Administration Senna/Docusate Sodium 2 tab 07/05/23 17:00 07/06/23 09:59 Senna/Docusate Sodium Tablet PO 2 tab BID MYRANDA Administration Radiology Results: ITS Impressions Knee X-Ray 07/05/23 11:58 Impression: Status post total knee replacement, without evidence of hardware complication. Labs Labs: Laboratory Results - last 24 hr 07/05/23 07/05/23 07/06/23 16:26 20:24 05:54 WBC 9.7 RBC 3.97 L Hgb 11.8 L Hct 36.1 L MCV 90.9 MCH 29.7 MCHC 32.7 RDW 13.7 Plt Count 202 MPV 10.3 Immature Gran % (Auto) 0.3 Neut % (Auto) 75.6 H Lymph % (Auto) 11.6 L [place] % (Auto) 11.9 H Eos % (Auto) 0.2 Baso % (Auto) 0.4 Lymph # (Auto) 1.12 [place] # (Auto) 1.2 H Eos # (Auto) 0.0 Baso # (Auto) 0.0 Abs Immat Gran (auto) 0.03 Absolute Neuts (auto) 7.3 H Absolute Nucleated RBC 0.000 Nucleated RBC % 0.0 Sodium 136 L Potassium 4.0 Chloride 108 H Carbon Dioxide 25 Anion Gap 3 L BUN 18 Creatinine 0.70 Estim Creat Clear Calc 94 Estimated GFR > 60 Glucose 147 H POC Capillary Glucose 198 H 205 H Calcium 8.5 Magnesium 1.9 Total Bilirubin 0.5 Direct Bilirubin 0.0 AST 20 ALT 15 Alkaline Phosphatase 46 Total Protein 6.0 L Albumin 3.5 07/06/23 07/06/23 07:37 11:17 WBC RBC Hgb Hct MCV MCH MCHC RDW Plt Count MPV Immature Gran % (Auto) Neut % (Auto) Lymph % (Auto) [place] % (Auto) Eos % (Auto) Baso % (Auto) Lymph # (Auto) [place] # (Auto) Eos # (Auto) Baso # (Auto) Abs Immat Gran (auto) Absolute Neuts (auto) Absolute Nucleated RBC Nucleated RBC % Sodium Potassium Chloride Carbon Dioxide Anion Gap BUN Creatinine Estim Creat Clear Calc Estimated GFR Glucose POC Capillary Glucose 152 H 181 H Calcium Magnesium Total Bilirubin Direct Bilirubin AST ALT Alkaline Phosphatase Total Protein Albumin
[2023-07-06] MEDS: CEPHALEXIN 500 MG CAPSULE PO (12:28)
== END 2023-07-06 13:03 | disposition home or self-care (01) ==
LOC: ANHSURGERY 06:11 → ANH3MEDSUR 12:37
PROVIDERS: Physician Assistant; Visit Provider Orthopaedic Surgery
PROC: (CPT 27447; principal; 2023-07-05 07:30)
DX: M17.12 Unilateral primary osteoarthritis, left knee (principal); I10 Essential (primary) hypertension; E11.9 Type 2 diabetes mellitus without complications; E78.5 Hyperlipidemia, unspecified; Z79.82 Long term (current) use of aspirin; Z79.84 Long term (current) use of oral hypoglycemic drugs
CPT/HCPCS: 27447; 36415; 73560; 80048; 80076; 80307; 82040; 82948; 83036; 83735; 85025; 86850; 86900; 86901; 87081; 87181; 97110; 97116; 97161; 97165; 97530; 97535; A9270; C1713; C1776; J0171; J0330; J0690; J1100; J1170; J1815; J1885; J2270; J2405; J2704; J2795; J3010; J3370; J7030; J7120